=== PATIENT | female | born 1960 | race African-American/Black ===

== ENCOUNTER 2024-04-25 06:40 | Day surgery (SDC) | payer OTHER ==
[2024-04-21 16:25] VITALS: BMI 25.7
[2024-04-25] MEDS ORDERED: ONDANSETRON 4 MG/2 ML VIAL ONE (09:19)
[2024-04-25] MEDS ORDERED: ceFAZolin SODIUM 1 GM VIAL ONE (09:19)
[2024-04-25] MEDS ORDERED: PROPOFOL 20 ML ONE (09:19)
[2024-04-25] MEDS ORDERED: DEXAMETHASONE SOD PHOSPHATE 4 MG/1 ML VIAL ONE (09:19)
[2024-04-25] MEDS ORDERED: LIDOCAINE HCL/PF 2% SDV 5ML VIAL ONE (09:19)
[2024-04-25] MEDS ORDERED: MIDAZOLAM HCL 2 MG/2 ML SINGLE DOSE VIAL ONE (09:20)
[2024-04-25] MEDS ORDERED: ACETAMINOPHEN INJECTION 100 ML ONE (10:07)
[2024-04-25] MEDS ORDERED: oxyCODONE HCL 5 MG TABLET PO PRN (10:13)
[2024-04-25] MEDS ORDERED: ONDANSETRON 4 MG/2 ML VIAL IVPUSH PRN (10:13)
[2024-04-25] MEDS ORDERED: LACTATED RINGERS SOLUTION 1,000 ML IV SCH (10:15)
[2024-04-25] MEDS: ceFAZolin SODIUM 1 GM VIAL IVPB ONE (10:24)
[2024-04-25] MEDS ORDERED: KETOROLAC TROMETHAMINE 30 MG/1 ML VIAL ONE (10:48)
[2024-04-25 11:16] VITALS: TEMP 97.3
[2024-04-25 13:19] VITALS: BP 138/69; PULSE 62; RESP 18
== END 2024-04-25 13:40 | disposition home or self-care (01) ==
LOC: JASU-SURG 06:40
PROVIDERS: ATTEND Obstetrics & Gynecology
PROC: 0UBC7ZX Excision of Cervix, Via Natural or Artificial Opening, Diagnostic (ICD-10-PCS; principal; 2024-04-25 10:00)
DX: R87.613 High grade squamous intraepithelial lesion on cytologic smear of cervix (HGSIL) (principal)
CPT/HCPCS: 88305-TC; 88307-TC; 88341-TC; 88342-TC; 94760; J0131